=== PATIENT | male | born 1950 | race African-American/Black ===

== ENCOUNTER → 2024-03-14 15:08 | Outpatient (REF) | payer OTHER, SELFPAY | LOC: MRI 3T 15:08 | PROVIDERS: FAMILY PHYSICIAN Hospitalist | DX: C61 Malignant neoplasm of prostate (principal) | CPT/HCPCS: 72197; A9575 ==

== ENCOUNTER 2024-04-27 08:33 | Inpatient (IN) | payer OTHER, SELFPAY ==
[2024-04-26] VITALS (16 sets, daily range): BP systolic 118–164; BP diastolic 55–83; PULSE 61–76; BMI 31.7; BMI 31.6
[2024-04-26 08:24] LABS: Glucose - Point of Care 303 mg/dl (70-99)
[2024-04-26 08:28] LABS: % Basophils 0.8 % (0-2); % Eosinophils 3.9 % (0-6); % Immature Granulocytes 0.6 % (0-0.5); % Lymphocytes 38.5 % (20.5-51.1); % Monocytes 7.7 % (1.7-9.3); % Neutrophils 48.5 % (42.2-75.2); Absolute Basophils 0.1 10^3/uL (0-0.2); Absolute Eosinophils 0.3 10^3/uL (0-0.7); Absolute Lymphocytes 2.8 10^3/uL (1.2-3.4); Absolute Monocytes 0.6 10^3/uL (0.1-0.6); Absolute Neutrophils 3.5 10^3/uL (1.4-6.5); Hemoglobin 12.8 g/dL (13.0-18.0); Mean Corpuscular Hgb 26.2 pg (27.0-31.0); Mean Platelet Volume 11.5 fL (7.4-10.4); Nucleated Red Blood Cells % 0 % (-); Platelet Count 171 10^3/uL (130-400); Red Blood Cell Count 4.88 10^6/uL (4.70-6.10); White Blood Cell Count 7.3 10^3/uL (4.8-10.8)
[2024-04-26 08:57] LABS: Blood Urea Nitrogen 23 mg/dl (9-20); Calcium 9.3 mg/dl (8.4-10.2); Carbon Dioxide 23 mmol/L (22-30); Chloride 103 mmol/L (98-107); Estimated Creatinine Clearance 48 ml/min; Glucose 357 mg/dl (70-99); Sodium 133 mmol/L (135-145); eGFR 48.25
--- NOTE | 2024-04-26 09:36 | ED.GENMED ---
History of Present Illness
General
Chief Complaint: Fainting/Passed Out
Source: patient
Exam Limitations: none
Time Seen by Provider: 04/26/24 08:59
Nursing documentation reviewed up to this point in time: agreed with
History of Present Illness
History of Present Illness:
73-year-old male with history of insulin-dependent diabetes, hypertension, prostate cancer present emergency department today with concerns of witnessed transient change in mental status. Daughter reports that she was in the kitchen with her dad
today when patient was sitting at the kitchen table and suddenly, he sounded like he was gasping for air, his eyes rolled back in his head, and he started slurring his words. This episode lasted around 15 seconds. Daughter reports that she tried
checking his sugars and noted that it was around 314. She also tried to check his blood pressure with working. She subsequently called EMS. By the time the EMS arrived, patient seemed to fully come to it and just complained of fatigue. Patient
himself states that he not feel chest pain or dizziness prior to this episode, no palpitations, he states that he just was sitting in his daughter noted change in his speech. Patient denies shortness of breath. Patient states he currently has no
symptoms and feels well and at his baseline. 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 He apparently had similar episodes to this in the past and has had
workups for this before it is noted that his blood pressure was low at these instances.
Review of Systems
Review of Systems
All Other Systems: ROS reviewed and negative except as documented in HPI and ROS
Phy Exam
Physical Exam
Physical Exam:
General: Patient is well appearing and in no acute distress; non-toxic
Skin: Warm and dry, no rashes or lesions
Head: Normocephalic, atraumatic
Eyes: Sclera non-icteric. EOMs intact.
Cardiac: Regular rate and rhythm, no murmurs
Peripheral Vascular: No lower extremity swelling or edema, 2+ dorsalis pedis pulses bilaterally
Pulm: Normal respiratory effort, no wheezes, rales, rhonchi, breath sounds equal bilaterally
Musculoskeletal: 5 out of 5 strength in bilateral upper and lower extremities
Neuro: CN II-XII intact, no focal neurologic deficits. Finger-nose, [id number] testing intact.
Psychiatric: Appropriate mood and affect.
Course
Orders/Labs/Results
Orders:
Orders
04/26/24 08:13
EKG [Electrocardiogram (*1)] Urgent
Reason for Study: Syncope
EKG- Treatment ONCE
04/26/24 08:21
Basic Metabolic Panel Stat
CBC/With Diff [Complete Blood Count/With Diff] Stat
04/26/24 09:18
Orthostatic VS- Treatment ONCE
04/26/24 10:22
Add On- LAB Urgent
Tests Added?: troponin
CT Head W/o Iv Contrast Urgent
Comment:
Reason For Exam: transient dysarthria
04/26/24 10:32
D-Dimer Urgent
04/26/24 10:57
Troponin I Urgent
04/26/24 13:15
Admit/Transfer Patient As Directed
Co-Sign Provider:
Level of Care: Observation services
Assign to:: Telemetry
Physician / Group: Hospitalist
Diagnosis: Syncope
Reason for Telemetry: Syncope
Date to Stop Telemetry: 04/28/24
Time to Stop Telemetry: 11:00
Reason for Hospitalization: Syncope
PRN Pain Medication Management As Directed
May give lesser potent ordered pain med per pt: Yes
preference::
Protocol:: Medication orders for pain may be administered in a
manner that supports deferring to patient preference
when the pt is:
-Requesting an ordered lesser potent pain medication.
Least to most potent pain medications are defined as:
acetaminophen < NSAID < tramadol < opioids (morphine,
oxycodone, hydromorphone).
- Requesting a lesser dose of the same medication IF
ORDERED.
- Requesting a less intrusive route of administration
if both routes are prescribed by the provider (PO <
IV).
04/26/24 13:16
Code Status As Directed
Resuscitation Status: Full Code
04/26/24 Dinner
1800 calorie (15 carb) Diabetic
At Your Request: Full Participation
04/26/24 15:14
0.9% Sodium Chloride 1000 ml [Nss] 1,000 ml IV 75 mls/hr
Bisacodyl [Dulcolax] 10 mg RECTAL [id number] PRN
Dextrose 50%-Water [Dextrose 50% Syringe] 12.5 grams IV [id number] PRN
Docusate W/Senna [Senokot-S] 1 tablet PO BIDPRN PRN
Glucagon [GlucaGen] 1 mg IM PRN PRN
Polyethylene Glycol Powder [Miralax] 17 grams PO DAILYPRN PRN
04/26/24 15:14
Echo 2D MMode Color/Doppler Routine
Reason for Study: syncope
NEUROLOGY CONSULT Routine
Consulting Provider: Willy Burch
Was physician already notified: Yes
Reason for consult: LOC
Activity As Directed
Activity Level: Out of Bed-Early Mobility
Bedside Glucose Monitoring As Directed
Frequency: AC&HS
Additional Instructions:: Change to q6h if pt on TPN, tube feeding or not eating
Orthostatic Vital Signs As Directed
Orthostatic VS Frequency: Daily
Orthostatic Vital Signs As Directed
Orthostatic VS Frequency: Now
Vital Signs As Directed
Frequency: Per unit guidelines
DX Deep Vein Thrombosis Video Routine
04/26/24 15:37
Troponin I Q8H
04/26/24 16:00
Heparin 5,000 units SC Q8
04/26/24 16:30
Insulin Aspart Corrective Mod [Novolog Flexpen-Moderate Resistance] See Protocol SC AC
04/26/24 22:00
Atorvastatin [Lipitor] 40 mg PO HS
Insulin Aspart/Asp Protamine [Novolog Mix 70/30 Flexpen] 30 units SC HS
Tamsulosin [Flomax] 0.4 mg PO HS
04/26/24 23:14
Troponin I Q8H
04/27/24 06:00
Complete Blood Count/With Diff IN AM
Comprehensive Metabolic Panel IN AM
Glycohemoglobin (HgbA1c) IN AM
TSH Reflex To Free T4 IN AM
04/27/24 07:14
Troponin I Q8H
04/27/24 08:00
Finasteride [Proscar] 5 mg PO DAILY
Insulin Aspart/Asp Protamine [Novolog Mix 70/30 Flexpen] 65 units SC DAILY
Losartan [Cozaar] 25 mg PO DAILY
Metoprolol Xl [Toprol Xl] 25 mg PO DAILY
04/28/24 11:00
DC Protocol for Telemetry ONCE
Abnormal Lab Results
04/26/24 04/26/24 04/26/24
08:21 08:23 10:32
Hgb 12.8 L g/dL
(13.0-18.0)
MCH 26.2 L pg
(27.0-31.0)
MCHC 32.0 L g/dL
(33.0-37.0)
MPV 11.5 H fL
(7.4-10.4)
Immature Gran % 0.6 H %
(0-0.5)
D-Dimer 0.65 H ug/mlFEU
(0.00-0.50)
Sodium 133 L mmol/L
(135-145)
BUN 23 H mg/dl
(9-20)
Creatinine 1.5 H mg/dL
(0.7-1.3)
Glucose 357 H mg/dl
(70-99)
POC Glucose 303 H mg/dl
(70-99)
04/26/24 08:21
04/26/24 08:21
Vital Signs
Initial and Last Documented VS:
Initial Vital Signs
BP
135/76
04/26/24 08:10
Last Documented Vital Signs
Temp Pulse Resp BP Pulse Ox
97.7 F 61 17 152/83 99
04/26/24 15:33 04/26/24 15:33 04/26/24 15:33 04/26/24 15:33 04/26/24 15:33
MDM/Problems Addressed
Differential Diagnosis Includes:
ddx include arrhythmia, hypoglycemia, electrolyte derangement, ACS, orthostatic hypotension, PE
MDM/Problems Addressed:
Transient altered mental status:
73 y/o male with a PMH of HTN, prostate cancer, insulin dependent diabetes presenting to the ER today with a transient change in mental status witnessed by daughter. He was sitting at the kitchen table today when suddenly she heard him gasping for
breath, his eyes rolled in the back of his head, and he had a slurring of speech. This lasted around 30 seconds. He than stated he felt tired. Denies chest pain, shortness of breath, dizziness. Daughter subsequently called EMS and by the time they
got there, he was back to baseline and stated he felt well, but BP at the time was 73/40. Here in the emergency department, he is well-developed., Denies any symptoms currently, CBC unremarkable, CMP demonstrates hyperglycemia of 357 and mild
elevation BUN/creatinine, patient does apparently have chronic kidney disease and follows with architecture consultant, they note previous numbers to compare. Patient was given a bag of IV fluids. Age-adjusted D-dimer normal.
I spoke to Dr. Burch from neuro on the phone, he didn't think he needed a TIA workup. I suspect its likely a vasovagal response or medication response, he does take Tamsulosin and metoprolol but it seemed to be an unprovoked episode so we want to
keep him overnight for evaluation of possible arrhythmia. He has never been evaluated by a fish bait processing supervisor before. Patient referred for admission by hospitalist
Chronic conditions affecting care:
htn, diabetes
*Pulse Oximetry
Patient hypoxic: no
*Critical Care Note
Total Time (30-74mins, 75-104mins- exclusive of procedures): Not Applicable
Data Reviewed
Review of Other/Old Records Reveals: Records (No previous ER physician documentation to review) and Discharge Summary (No discharge summary in [facility] to review)
Source: patient and records
Patient Management
Escalation/DeEscalation of care consider admission/obs:
Reviewed case with Dr. Page, patient stable for discharge
Update Note
Update Note:
Patient's medications are as follows:
Finasteride 5 mg daily
Losartan 25 mg daily
Metoprolol 25 mg every other day
NovoLog in the morning 65 units
Tamsulosin 0.4 mg nightly
Atorvastatin 40 mg nightly
NovoLog 30 units nighty
ED Attending Note
-
Portions of this chart may have been created with voice recognition software.� Occasional wrong word or��sound alike� substitutions may have occurred due to the inherent limitations of voice recognition software.
Discharge Plan
Departure
Patient Disposition: Admit
Date of Disposition: 04/26/24
Time of Disposition: 12:15
Admit to: Telemetry
Presentation/result/management discussed w/ accepting MD/DO: Hospitalist
Patient with high blood pressure during this ER visit?: No
Condition: Fair
Discharge Problem:
Syncope
Interventions
Interventions:
*Risk Screen - Suicide Last Done: 04/26/24 15:13
*General Assessment Last Done: 04/26/24 15:13
*Neglect/Abuse Screening Last Done: 04/26/24 15:13
ED- Fall Risk Assessment Last Done: 04/26/24 08:27
*ED COVID-19 Vaccine History Last Done: 04/26/24 15:13
*Nursing Disposition Last Done: 04/26/24 15:13
ED- Cardiac Assessment Last Done: 04/26/24 08:27
ED- Neurological Assessment Last Done: 04/26/24 08:27
Discharge Date and Time
Discharge Date/Time: 04/26/24 15:14
[2024-04-26 11:22] LABS: D-Dimer 0.65 ug/mlFEU (0.00-0.50)
[2024-04-26 11:26] LABS: Troponin I < 0.012 ng/ml
--- NOTE | 2024-04-26 13:21 | HPS.HSE ---
Addendum entered and electronically signed by Da Abdi MD 04/26/24 14:44:
Wells 0, ddimer < age adjusted ULN, patient not hypoxic - no concern for VTE
Original Note:
Family Physician
-
Family Physician: Tyler Pelayo MD
Chief Complaint
-
syncope
History of Present Illness
73yo M with PMHx of back abscess s/p I&D and completed Abx, HTN, DM, HLD, BPH came after an episode of LOC lasted appr 30min associated with diaphoresis and without significant confusion afterwards. Had almost LOC episode couple of moth ago too. No
chest pain, recent infection and seen in ED with no complains. As per ED provider conversation with neurologist - no concern for acute stroke at the time of admission
No recent changes in meds
Medical History
Past Medical History
Past Medical History: Reports Other
Additional Past Medical History:
See HPI
Past Surgical History: Reports Other
Additional Past Surgical History:
See HPI
Social History
Tobacco: Non-smoker
Alcohol: None
Drug: None
Family History
Family History: Not pertinent
Allergies / Home Medications
Allergies reflects when Allergies were last updated in [facility].
Home Medications with original date entered in [facility]
Allergy/Medication List:
Home Medications
atorvastatin 40 mg tablet 40 mg PO HS 04/26/24
finasteride 5 mg tablet 5 mg PO DAILY 04/26/24
insulin aspar prt-insulin aspart 100 unit/mL (70-30) subcutaneous soln (Novolog Mix 70-30 U-100 Insuln) 30 unit SC HS 04/26/24
insulin aspar prt-insulin aspart 100 unit/mL (70-30) subcutaneous soln (Novolog Mix 70-30 U-100 Insuln) 65 unit SC DAILY 04/26/24
losartan 25 mg tablet 25 mg PO DAILY 04/26/24
metoprolol succinate 25 mg tablet,extended release 24 hr 25 mg PO DAILY 04/26/24
tamsulosin 0.4 mg capsule 0.4 mg PO HS 04/26/24
NKDA
Review of Systems
-
History Source: Patient and Family
A 12 point ROS was completed and negative except as noted: Yes
Physical Exam
Vital Signs
Vital Signs
Temp Pulse Resp BP Pulse Ox
97.5 F 57 21 158/78 98
04/26/24 08:14 04/26/24 12:00 04/26/24 12:00 04/26/24 12:00 04/26/24 12:00
Physical Exam
General: Well Developed, Well Nourished and No Apparent Distress
HEENT: NormoCephalic and Anicteric
Respiratory: Clear; No Wheezes or Rales
Cardiac: S1/S2 and Regular Rhythm
GI: Soft, Non Tender and Non Distended
Genito-urinary: No costovertebral tender
Musculoskeletal: No Clubbing, No Cyanosis and No Edema
Skin: Warm
Neuro: Awake, Alert, Oriented, AO x 3 and No Motor Deficits
Psych: Calm
Laboratory Results
-
04/26/24 08:21
04/26/24 08:21
Laboratory Results
Total Bilirubin Cancelled 04/26/24 08:21
AST Cancelled 04/26/24 08:21
ALT Cancelled 04/26/24 08:21
Alkaline Phosphatase Cancelled 04/26/24 08:21
Troponin I < 0.012 ng/ml 04/26/24 10:57
Data Reviewed
-
CT Scan: Report Reviewed by me
Lab Data: Labs Reviewed by me
Impression/Plan
-
73yo M with PMHx of back abscess s/p I&D and completed Abx, HTN, DM, HLD, BPH came after an episode of LOC lasted appr 30min associated with diaphoresis and without significant confusion afterwards. Had almost LOC episode couple of moth ago too. No
chest pain, recent infection and seen in ED with no complains. As per ED provider conversation with neurologist - no concern for acute stroke at the time of admission
No recent changes in meds
A/P:
#Syncope
Orthostatics
Echo, telemetry
Neurology consult
Serial troponin
TSH
CT head WNL
#DM type 2 with neuropathy
Cont insulin
check HgbA1c
DM diet, accuchecks, Insulin SS
#CKD vs OG
Cr on admission 1.5, unclear baseline
IVF and follow Cr
#Essential HTN
#BPH
#HLD
cont home meds
DVT ppx hep
FUll code
I have spent at least 76 min preparing admission, communication with family and direct patient care
[2024-04-26 16:20] LABS: Troponin I < 0.012 ng/ml
[2024-04-26 16:24] LABS: Glucose - Point of Care 151 mg/dl (70-99)
--- NOTE | 2024-04-26 17:00 | PTCARENOTE ---
Pt admitted to rm [id number] from ED. Ambulated to bed from stretcher. Family present at bedside. Pt AAOx3, can make needs known. Tele # [phone] in place - SB on monitor. Family reported patient had not voided since 6AM today - patient denied urge to urinate.
Pt instructed to attempt void, was able to void 400ml, bladder scanned for PVR 270ml. Hospitalist made aware, ordered serial bladder scan/straight cath. Family informed of POC.
[2024-04-26] MEDS: NOVOLOG FLEXPEN-MODERATE RESISTANCE 1 UNITS SC (17:56)
[2024-04-26] MEDS: HEPARIN 5000 UNITS SC (17:57)
[2024-04-26] MEDS: NSS 1000 IV (17:59)
[2024-04-26 21:46] LABS: Glucose - Point of Care 238 mg/dl (70-99)
[2024-04-26] MEDS: FLOMAX 0.4 MG PO (21:49)
[2024-04-26] MEDS: LIPITOR 40 MG PO (21:49)
[2024-04-26] MEDS: NOVOLOG MIX 70/30 FLEXPEN 30 UNITS SC (21:49)
[2024-04-26 23:39] LABS: Troponin I < 0.012 ng/ml
[2024-04-27] VITALS (7 sets, daily range): BP systolic 127–168; BP diastolic 66–83; PULSE 54–69
[2024-04-27] MEDS: HEPARIN SC (00:15)
[2024-04-27] MEDS: NSS 1000 IV ×2 (04:35→17:23)
[2024-04-27 05:11] LABS: Glucose - Point of Care 96 mg/dl (70-99)
--- NOTE | 2024-04-27 05:37 | PTCARENOTE ---
Patients own insulin monitor started alarming intermittently this morning for low blood sugar. Patient's monitor reading in the 60s on multiple occasions. Patient provided juice. After juice patient's own monitor alarming again for low sugars --
checked with hospital monitor showing 96. Patient is resting in bed comfortably, asymptomatic, able to sleep well throughout shift and has been back and forth to the bathroom. Call robert is within reach, will monitor.
[2024-04-27 07:34] LABS: Glucose - Point of Care 79 mg/dl (70-99)
[2024-04-27 07:56] LABS: % Basophils 0.5 % (0-2); % Eosinophils 3.8 % (0-6); % Immature Granulocytes 0.3 % (0-0.5); % Monocytes 8.5 % (1.7-9.3); % Neutrophils 43.9 % (42.2-75.2); Absolute Eosinophils 0.3 10^3/uL (0-0.7); Absolute Lymphocytes 3.2 10^3/uL (1.2-3.4); Absolute Monocytes 0.6 10^3/uL (0.1-0.6); Absolute Neutrophils 3.2 10^3/uL (1.4-6.5); Hematocrit 38.8 % (39.0-52.0); Hemoglobin 12.5 g/dL (13.0-18.0); Mean Corp Hgb Conc. 32.2 g/dL (33.0-37.0); Mean Corpuscular Volume 80.8 fL (80.0-94.0); Mean Platelet Volume 11.2 fL (7.4-10.4); Nucleated Red Blood Cells % 0 % (-); Platelet Count 172 10^3/uL (130-400); Red Cell Dist. Width 12.8 % (11.5-14.5); White Blood Cell Count 7.4 10^3/uL (4.8-10.8)
[2024-04-27 08:17] LABS: Troponin I < 0.012 ng/ml
--- NOTE | 2024-04-27 08:31 | W.PN.HOSP.TC ---
Today's Communication/Plan
-
Insulin decreased
BB stopped
Echo pending
follow trend
Assessment / Plan
Assessment / Plan
73yo M with PMHx of back abscess s/p I&D and completed Abx, HTN, DM, HLD, BPH came after an episode of LOC lasted appr 30min associated with diaphoresis and without significant confusion afterwards. Had almost LOC episode couple of month ago too.
Found bradycardic and with blood glucose in 60th on occasions on the on-skin monitor
A/P:
#Syncope
most likely 2/2 symptomatic bradycardia or hypoglycemia episodes
stop BB, decrease insulin - follow trend
Orthostatics negative
Echo, telemetry
Neurology consult would not be contributory with no focal neuro changes and no signs of seizures during the episodes
Serial troponin WNL
TSH
CT head WNL
Cardiology conult
#DM type 2 with neuropathy
Cont insulin - decrease dose, avoid hypoglycemia
check HgbA1c
DM diet, accuchecks, Insulin SS
#CKD vs OG
Cr on admission 1.5, unclear baseline
IVF and follow Cr
#Essential HTN
#BPH
#HLD
cont home meds
#Suspect ALICIA
advise outpatient sleep study
DVT ppx hep
Full code
I have spent at least 36min reviewing the chart, test results, comminication with consultats and direct patient care
Anticipated Discharge: Within 24 hours
Subjective/Interval History
-
Date of Service: April 27, 2024
Objective Data
-
Labs:
Laboratory Results
04/27/24
07:22
WBC 7.4
Hgb 12.5 L
Hct 38.8 L
Plt Count 172
Sodium Pending
Potassium Pending
Chloride Pending
Carbon Dioxide Pending
BUN Pending
Creatinine Pending
Glucose Pending
Calcium Pending
Total Bilirubin Pending
AST Pending
ALT Pending
Alkaline Phosphatase Pending
Vital Signs:
Vital Signs
Temp Pulse Resp BP Pulse Ox
98.6 F 59 17 127/66 97
04/27/24 07:29 04/27/24 07:29 04/27/24 07:29 04/27/24 07:29 04/27/24 07:29
I&O
04/26/24 04/27/24 04/28/24
06:59 06:59 06:59
Intake Total 1140 / 1140
Balance 1140 / 1140
Review of Systems
-
All other systems: Reviewed and negative
Physical Exam
-
General: Well Developed and Well Nourished
HEENT: Normocephalic
Respiratory: Clear to Auscultation
Cardiac: Regular Rhythm and Bradycardic
GI: Soft, Nontender and Nondistended
Genito-urinary: No Costovertebral Tender
Musculoskeletal: No Clubbing, No Cyanosis and No Edema
Neuro: Awake, Alert, Oriented and AO x 3
Psych: Calm
[2024-04-27 09:05] LABS: ALT (SGPT) 19 U/L (0-50); AST (SGOT) 22 U/L (17-59); Albumin 3.3 g/dl (3.5-5.0); Alkaline Phosphatase 73 U/L (38-126); Blood Urea Nitrogen 20 mg/dl (9-20); Calcium 9.3 mg/dl (8.4-10.2); Carbon Dioxide 24 mmol/L (22-30); Chloride 108 mmol/L (98-107); Estimated Creatinine Clearance 55 ml/min; Glucose 63 mg/dl (70-99); Potassium 4.1 mmol/L (3.5-5.1); Sodium 137 mmol/L (135-145); Total Bilirubin 0.4 mg/dl (0.2-1.3); Total Protein 6.1 g/dl (6.3-8.2); eGFR 57.29
[2024-04-27] MEDS: NOVOLOG FLEXPEN-MODERATE RESISTANCE SC ×2 (09:05→16:53)
[2024-04-27] MEDS: NOVOLOG MIX 70/30 FLEXPEN 55 UNITS SC (09:06)
[2024-04-27] MEDS: HEPARIN 5000 UNITS SC ×3 (09:07→23:06)
[2024-04-27] MEDS: PROSCAR 5 MG PO (09:08)
[2024-04-27] MEDS: COZAAR 25 MG PO (09:08)
[2024-04-27 09:38] LABS: Glycohemoglobin (HgbA1c) 13.1 % (4.0-5.6)
[2024-04-27 09:42] LABS: TSH Reflex To Free T4 1.84 uIU/ml (0.47-4.68)
[2024-04-27 11:35] LABS: Glucose - Point of Care 193 mg/dl (70-99)
[2024-04-27] MEDS: NOVOLOG FLEXPEN-MODERATE RESISTANCE 1 UNITS SC (12:38)
[2024-04-27 16:19] LABS: Glucose - Point of Care 136 mg/dl (70-99)
--- NOTE | 2024-04-27 17:05 | CON.CAR ---
Consultation
Consultation Request
Date/Time Consultation Requested: 04/27/2024 1100
Date/Time Consultation Performed: 04/27/2024 1600
Requesting Provider: Hospitalist
Performing Provider: Dr. Fitzpatrick
Reason for Consultation: Syncope
Medical History
-
History of Present Illness:
.
73-year-old male with a history of diabetes hypertension and hypercholesterolemia who presents with an episode of syncope. Patient was in his usual state of health and was sitting in cooking with his daughter. She turned around briefly and when
she turned back his head was extended backward and she said he was breathing funny she went over and she will come and then he briefly woke up with appeared tired and wanted to go up and was going to fall back to sleep also appeared to be briefly
slurring his words. No complaints of chest pain or shortness of breath. Patient does not recall feeling lightheaded or dizzy. No prodrome. He has had 2 episodes of syncope in the past both occurred at his doctor's office none of them were
preceded by phlebotomy or vaccination or other procedures. Difficulty describing the details and sounded like the most recent episode in July 2023 occurred after he was finished with the visit and he got up to leave. No recent changes in
medications.
In general his family says he has been a bit more tired and wants to rest but has not had exertional symptoms including no exertional chest pain or shortness of breath no complaints of lightheadedness dizziness palpitations or heart racing
Past medical history
Hypertension
diabetes
Hypercholesterolemia
Previous back abscess and I&D
Social history multiple children at bedside distant history of smoking
Family history negative for CAD
Past Medical History
Past Medical History: Other (As noted)
Social History
Tobacco: Former Smoker
Family History
Family History: Reviewed & Not Pertinent
Allergies / Home Medications
Allergy/AdvReac Type Severity Reaction Status Date / Time
No Known Allergies Allergy Unverified 04/26/24 15:42
�Medication �Instructions �Recorded �Confirmed �Type
atorvastatin 40 mg tablet 40 mg PO HS High Cholesterol 04/26/24 04/26/24 History
finasteride 5 mg tablet 5 mg PO DAILY Urinary Issue 04/26/24 04/26/24 History
insulin aspar prt-insulin aspart 30 unit SC HS Diabetes 04/26/24 04/26/24 History
100 unit/mL (70-30) subcutaneous
soln (Novolog Mix 70-30 U-100
Insuln)
insulin aspar prt-insulin aspart 65 unit SC DAILY Diabetes 04/26/24 04/26/24 History
100 unit/mL (70-30) subcutaneous
soln (Novolog Mix 70-30 U-100
Insuln)
losartan 25 mg tablet 25 mg PO DAILY Blood Pressure 04/26/24 04/26/24 History
metoprolol succinate 25 mg 25 mg PO DAILY Blood Pressure 04/26/24 04/26/24 History
tablet,extended release 24 hr
tamsulosin 0.4 mg capsule 0.4 mg PO HS Urinary Issue 04/26/24 04/26/24 History
Review of Systems
-
All other systems: Negative unless noted ( )
Respiratory: Other (Wheezing)
Physical Exam
Vital Signs
Temp Pulse Resp BP Pulse Ox
97.9 F 65 18 140/67 96
04/27/24 15:21 04/27/24 15:21 04/27/24 15:21 04/27/24 15:21 04/27/24 15:21
Lab Results
04/27/24 07:22
04/27/24 07:22
Troponin I < 0.012 ng/ml 04/27/24 07:22
Physical Exam
General: Other (Awake alert cooperative no distress)
HEENT: Normocephalic, Anicteric and Other (Pupils are equal extract movements intact external ear and oral exam unremarkable neck with adenopathy no JVD no carotid bruit)
Respiratory: Wheezes (End expiratory wheeze bilaterally no rales or rhonchi)
Cardiac: Regular Rhythm (No murmur rub or gallop)
GI: Soft, Non Tender and Non Distended
Musculoskeletal: Clubbing, No Clubbing and No Cyanosis
Impression / Plan
-
.
LOC. Suspected syncope. Patient and family do not think that he just fell asleep in the chair. Exact etiology unclear. Patient's had 2 other episodes of syncope which occurred at his physician's office because of those episodes also unclear.
Last episode July 2023.
-Telemetry
-Echo
-If the above tests are unremarkable then would recommend a longer-term cardiac monitoring with at least 2-week monitor. Implantable loop could also be a consideration in this patient who reports more than 1 syncopal episode
.
DM, poorly controlled. Hemoglobin A1c 13 management directed by primary team
Hypertension stable
Hypercholesterolemia. Continue atorvastatin
Data Reviewed
-
EKG: Report Reviewed by me
Medical Tests (Nuc Med, Echo etc): Report Reviewed by me
Labs: Labs Reviewed by me
[2024-04-27 21:19] LABS: Glucose - Point of Care 222 mg/dl (70-99)
[2024-04-27] MEDS: LIPITOR 40 MG PO (21:21)
[2024-04-27] MEDS: FLOMAX 0.4 MG PO (21:21)
[2024-04-27] MEDS: NOVOLOG MIX 70/30 FLEXPEN 25 UNITS SC (21:21)
[2024-04-28] VITALS (8 sets, daily range): BP systolic 141–160; BP diastolic 70–91; PULSE 61–79; O2SAT 98
[2024-04-28 03:04] LABS: Glucose - Point of Care 61 mg/dl (70-99)
[2024-04-28 03:19] LABS: Glucose - Point of Care 72 mg/dl (70-99)
--- NOTE | 2024-04-28 03:23 | PTCARENOTE ---
Pt. blood glucose alarming at 55. Fingerstick accuchek performed by RN and resulted at 61. 4 oz juice given to patient. Patient asymptomatic. 15 mins later, fingerstick accuchek resulted at 72. Patient remains asymptomatic. Plan of care ongoing.
[2024-04-28 05:22] LABS: Glucose - Point of Care 107 mg/dl (70-99)
[2024-04-28] MEDS: NSS 1000 IV (06:25)
[2024-04-28 07:16] LABS: Glucose - Point of Care 126 mg/dl (70-99)
--- NOTE | 2024-04-28 08:27 | PN.DE.MGMTRT ---
Insulin Management
- -
04/28/2024: Diabetes Management Consult
73 year old male admitted with a recurrent syncope episode. PMH: HTN, HLD, BPH, back abscess s/p I&D and T2DM. It is noted that his episode of LOC lasted appr 30min associated with diaphoresis and without significant confusion afterwards. He was
found bradycardic and Hypoglycemic with a blood sugar in 60s on his CGM. He was taking 70/30 BID, 65 units in AM and 30 units in PM prior to admission. A1C 13.1%, Cr 1.5, eGFR 57.29
Pt awake, A/O x3, offers no complaints, able to discuss diabetes mgt.
Has no Endo, Lives in [facility] and diabetes managed by his PCP. States he has a CGM-Cara
He has been started on his OP regimen at reduced dose of 55 units in AM and 25 units @HS
Of note, pt has had 2 episodes of Hypoglycemia as low as 63, fasting on 04/27 and again down to 61 @3AM on 04/28.
Will change schedule to dinner time and reduced dose to 22 units. Cont AM 70/30 dose of 55 units. Cont moderate corrective with meals
Will cont to follow and adjust insulin dose if necessary
Diabetes History
- -
Type of Diabetes: 2 requiring insulin
Pre-Admission Diabetes Regimen
04/27/24
07:22
Creatinine 1.3
Lab Results
Hemoglobin A1c 13.1 % (4.0-5.6) H 04/27/24 07:22
Insulin Pump Settings
IP Diabetes Regimen
04/27/24 04/27/24 04/27/24
07:22 11:32 16:18
Glucose 63 L
POC Glucose 193 H 136 H
04/27/24 04/28/24 04/28/24
21:18 03:02 03:17
Glucose
POC Glucose 222 H 61 L 72
07/29/24 07/29/24
05:21 07:15
Glucose
POC Glucose 107 H 126 H
Meal type: Lunch
Meal type: Breakfast
Amount consumed: 100%
Amount consumed: 100%
Patient Education
[2024-04-28] MEDS: COZAAR 25 MG PO ×2 (08:40→15:46)
[2024-04-28] MEDS: NOVOLOG FLEXPEN-MODERATE RESISTANCE SC ×2 (08:40→17:29)
[2024-04-28] MEDS: PROSCAR 5 MG PO (08:40)
[2024-04-28] MEDS: HEPARIN 5000 UNITS SC ×2 (08:41→17:31)
[2024-04-28] MEDS: NOVOLOG MIX 70/30 FLEXPEN 55 UNITS SC (08:41)
[2024-04-28 11:31] LABS: Glucose - Point of Care 201 mg/dl (70-99)
[2024-04-28] MEDS: NOVOLOG FLEXPEN-MODERATE RESISTANCE 3 UNITS SC (12:13)
--- NOTE | 2024-04-28 12:48 | W.PN.CD ---
Today's Communication / Plan
-
- Plan 30 day monitor if workup here is all negative
Impression / Plan
-
-
Syncope
- Uncertain etiology
- Prior syncope most c/w vasovagal/situational
- Mildly abnl ekg, Not sure IMI criteria are met
- Tele negative so far
- CT head negative
- Trop negative x4
- Echo pending
- Plan 30 day monitor if workup here is all negative
DM, poorly controlled. Hemoglobin A1c 13 management directed by primary team
Hypertension stable
Hypercholesterolemia. Continue atorvastatin
Prostate cancer
BPH
Subjective:
No CP o dyspnea
Physical Exam
Vital Signs/Labs
Vital Signs
Temp Pulse Resp BP Pulse Ox
97.8 F 66 17 160/75 99
04/28/24 10:50 04/28/24 10:50 04/28/24 10:50 04/28/24 10:50 04/28/24 10:50
04/27/24 04/28/24 04/29/24
06:59 06:59 06:59
Actual Weight 94.211 kg
04/27/24 07:22
04/27/24 07:22
LAB Results
04/26/24 04/26/24 04/26/24
10:57 15:37 23:08
Troponin I < 0.012 < 0.012 < 0.012
04/27/24
07:22
Troponin I < 0.012
Physical Exam
Constitutional: No acute distress
EENT: Anicteric
Cardiovascular: Rhythm & rate is regular and Pedal edema is absent
Respiratory: Respiratory effort normal and Lungs clear to auscul.
GI: Soft and Distention absent
Neuro/Psych: AO x 3
Data Reviewed
-
Date of Service: April 28, 2024
--- NOTE | 2024-04-28 13:16 | W.PN.HOSP.TC ---
Today's Communication/Plan
-
see outlined plan
Assessment / Plan
Assessment / Plan
Assessment:
Syncope
- arrhythmia vs hypoglycemia related
- Orthostatics negative
- monitor tele; so far no events
- await Echo
- OP cardiology f/u and arrange 30 day monitor
Labile type 2 DM with neuropathy
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
- A1C: 13.1%
CKD stage 3b
Essential HTN
- continue ARB
- stop BB
BPH - continue proscar
HLD - continue statin
ALICIA suspected
- OP sleep eval
DVT ppx: SC heparin
Code: Full
Anticipated Discharge: 24 - 48 hours
Subjective/Interval History
-
Date of Service: April 28, 2024
denies any new complaints today
tele unremarkable
Objective Data
-
Vital Signs:
Vital Signs
Temp Pulse Resp BP Pulse Ox
97.8 F 66 17 160/75 99
04/28/24 10:50 04/28/24 10:50 04/28/24 10:50 04/28/24 10:50 04/28/24 10:50
I&O
04/27/24 04/28/24 04/29/24
06:59 06:59 06:59
Intake Total 1140 / 1140 1260 / 1260
Balance 1140 / 1140 1260 / 1260
Physical Exam
-
General: No Apparent Distress
HEENT: Normocephalic and Atraumatic
Respiratory: Negative Wheezes
Cardiac: Regular Rhythm and S1/S2
GI: Soft
Genito-urinary: No Costovertebral Tender
Musculoskeletal: No Edema
Neuro: AO x 3
Hematologic / Lymphatic: No Lymphadenopathy
Psych: Calm
Data Reviewed
-
Total Time Spent with Patient (in minutes): 42
Labs: Labs Reviewed by me
--- NOTE | 2024-04-28 13:56 | CM ---
Patient seen at bedside with daughter also present. Patient daughter translated for patient. Patient lives with daughter on the first floor. Patient stated that he has a PCP Dr. natarajan and he uses the [facility] on [address] in [facility]. Patient uses a
cane at home but does not have any other DME. Patient states that he is eager to go home. CM will continue to follow for discharge planning needs.
Plan; home with no needs anticipated.
[2024-04-28 16:34] LABS: Glucose - Point of Care 123 mg/dl (70-99)
[2024-04-28] MEDS: NOVOLOG MIX 70/30 FLEXPEN 22 UNITS SC (17:31)
[2024-04-28 20:57] LABS: Hepatitis C Antibody Negative (Negative)
[2024-04-28] MEDS: FLOMAX 0.4 MG PO (21:15)
[2024-04-28] MEDS: LIPITOR 40 MG PO (21:15)
[2024-04-28 21:47] LABS: Glucose - Point of Care 67 mg/dl (70-99)
[2024-04-28 22:02] LABS: Glucose - Point of Care 64 mg/dl (70-99)
[2024-04-28 22:18] LABS: Glucose - Point of Care 71 mg/dl (70-99)
[2024-04-28 23:59] LABS: Glucose - Point of Care 116 mg/dl (70-99)
[2024-04-29] MEDS: HEPARIN SC (00:20)
[2024-04-29 02:16] LABS: Glucose - Point of Care 50 mg/dl (70-99)
[2024-04-29 02:31] LABS: Glucose - Point of Care 56 mg/dl (70-99)
[2024-04-29] MEDS: DEXTROSE 50% SYRINGE 12.5 GRAMS IV (02:33)
[2024-04-29 02:52] LABS: Glucose - Point of Care 154 mg/dl (70-99)
[2024-04-29 03:00] VITALS: BP 130/68
[2024-04-29 05:04] LABS: Glucose - Point of Care 120 mg/dl (70-99)
[2024-04-29 06:09] LABS: Hematocrit 40.2 % (39.0-52.0); Hemoglobin 13.1 g/dL (13.0-18.0); Mean Corp Hgb Conc. 32.6 g/dL (33.0-37.0); Mean Corpuscular Hgb 25.7 pg (27.0-31.0); Mean Corpuscular Volume 78.8 fL (80.0-94.0); Mean Platelet Volume 10.4 fL (7.4-10.4); Platelet Count 160 10^3/uL (130-400); Red Cell Dist. Width 13.2 % (11.5-14.5); White Blood Cell Count 6.9 10^3/uL (4.8-10.8)
[2024-04-29 06:29] LABS: Blood Urea Nitrogen 16 mg/dl (9-20); Calcium 9.6 mg/dl (8.4-10.2); Carbon Dioxide 25 mmol/L (22-30); Chloride 106 mmol/L (98-107); Estimated Creatinine Clearance 55 ml/min; Glucose 134 mg/dl (70-99); Potassium 4.5 mmol/L (3.5-5.1); Sodium 136 mmol/L (135-145); eGFR 57.29
[2024-04-29 07:15] VITALS: BP 136/74
[2024-04-29 07:34] LABS: Glucose - Point of Care 136 mg/dl (70-99)
--- NOTE | 2024-04-29 08:00 | PN.DE.MGMTRT ---
Insulin Management
- -
04/29/2024: Diabetes Management Consult Follow up
Patient with a transient syncope episode which resolved once EMs arrived. PMH: HTN, HLD, BPH, back abscess s/p I&D and T2DM. It is noted that his episode of LOC lasted appr 30min associated with diaphoresis and without significant confusion
afterwards. He was found bradycardic and Hypoglycemic with a blood sugar in 60s on his CGM. He was taking 70/30 BID, 65 units in AM and 30 units in PM prior to admission. A1C 13.1%, Cr 1.5, eGFR 57.29
Pt awake, A/O x3, offers no complaints, able to discuss diabetes mgt.
Has no Endo, Lives in [facility] and diabetes managed by his PCP. States he has a CGM-Cara
He has been started on his OP regimen at reduced dose of 55 units in AM and 25 units @HS
Patient has had several episodes of Hypoglycemia as low as 63, fasting on 04/27 and again down to 61 @3AM on 04/28 and 04/29 glucose 50 @ 2:15am and 56 @ 2:30am.
Will further reduce 70/30 dinner dinner dose to 15 units. Cont AM 70/30 dose of 55 units. Will reduce moderate corrective to low corrective with meals
Will cont to follow and adjust insulin dose if necessary
Diabetes History
- -
Type of Diabetes: 2 requiring insulin
Pre-Admission Diabetes Regimen
04/29/24
05:18
Creatinine 1.3
Lab Results
Hemoglobin A1c 13.1 % (4.0-5.6) H 04/27/24 07:22
Insulin Pump Settings
IP Diabetes Regimen
04/28/24 04/28/24 04/28/24
11:30 16:33 21:46
Glucose
POC Glucose 201 H 123 H 67 L
04/28/24 04/28/24 04/28/24
22:01 22:16 23:58
Glucose
POC Glucose 64 L 71 116 H
04/29/24 04/29/24 04/29/24
02:15 02:30 02:51
Glucose
POC Glucose 50 L* 56 L 154 H
04/29/24 04/29/24 04/29/24
05:02 05:18 07:33
Glucose 134 H
POC Glucose 120 H 136 H
Meal type: Lunch
Meal type: Breakfast
Amount consumed: 100%
Amount consumed: 100%
Patient Education
[2024-04-29] MEDS: HEPARIN 5000 UNITS SC (08:18)
[2024-04-29] MEDS: COZAAR 50 MG PO (08:18)
[2024-04-29] MEDS: PROSCAR 5 MG PO (08:18)
[2024-04-29] MEDS: NOVOLOG MIX 70/30 FLEXPEN 55 UNITS SC (08:20)
[2024-04-29] MEDS: NOVOLOG FLEXPEN-MODERATE RESISTANCE SC (08:24)
--- NOTE | 2024-04-29 10:32 | CM ---
Patient did well with physial therapy and plan is to home with visiting nurses. Patient to stay at daughter's home [address] [facility] [place] [id number]. Daughter to transport patient to home around 2:30pm.
Plan; Home with VN.
--- NOTE | 2024-04-29 11:21 | W.PN.HOSP.TC ---
Today's Communication/Plan
-
dc to home/VN today
Assessment / Plan
Assessment / Plan
Assessment:
Syncope
- arrhythmia vs hypoglycemia related
- Orthostatics negative
- monitor tele; so far no events
- Echo: no valve or wall motion abnormalities. normal EF
- OP cardiology f/u and arrange 30 day monitor
Labile type 2 DM with neuropathy
- continue insulin; [employer] consulted for adjustments given low readings
- A1C: 13.1%
CKD stage 3b
Essential HTN
- continue ARB
- stop BB
BPH - continue Proscar
HLD - continue statin
ALICIA suspected
- OP sleep evaluation
DVT ppx: SC heparin
Code: Full
More than 30 minutes spent in discharge including
Final examination of the patient
Summarizing hospital stay
Instructions for continuing care to all relevant caregivers
Preparation of discharge records, prescriptions, and referral forms
Total time spent (in minutes):42
Anticipated Discharge: Today
Subjective/Interval History
-
Date of Service: April 29, 2024
no new complaints
sugars more stable
Objective Data
-
Labs:
Laboratory Results
04/29/24
05:18
WBC 6.9
Hgb 13.1
Hct 40.2
Plt Count 160
Sodium 136
Potassium 4.5
Chloride 106
Carbon Dioxide 25
BUN 16
Creatinine 1.3
Glucose 134 H
Calcium 9.6
Vital Signs:
Vital Signs
Temp Pulse Resp BP Pulse Ox
97.5 F 60 17 136/74 98
04/29/24 07:15 04/29/24 08:18 04/29/24 07:15 04/29/24 08:18 04/29/24 09:43
I&O
04/28/24 04/29/24 04/30/24
06:59 06:59 06:59
Intake Total 1260 / 1260 1500 / 1500
Balance 1260 / 1260 1500 / 1500
Physical Exam
-
General: No Apparent Distress
HEENT: Normocephalic and Atraumatic
Respiratory: Negative Wheezes
Cardiac: Regular Rhythm and S1/S2
GI: Soft and Nontender
Musculoskeletal: No Edema
Neuro: AO x 3
Hematologic / Lymphatic: No Lymphadenopathy
Psych: Calm
Data Reviewed
-
Total Time Spent with Patient (in minutes): 45
Labs: Labs Reviewed by me
--- NOTE | 2024-04-29 11:28 | W.DS.TRANS ---
DC Summary - Court Interpreter
-
Discharge Instructions:
Discharge Diagnosis/Procedures syncope, labile diabetes
Diet Diabetic, Carb Controlled
Activity As tolerated
Other Services VN
Instructions:
Stand-Alone Forms:
Changes to Home Medications: No
Discharge Medications:
DC Medications w/original date entered in [employer]
atorvastatin 40 mg tablet 40 mg PO HS High Cholesterol 04/26/24
finasteride 5 mg tablet 5 mg PO DAILY Urinary Issue 04/26/24
tamsulosin 0.4 mg capsule 0.4 mg PO HS Urinary Issue 04/26/24
insulin aspar prt-insulin aspart 100 unit/mL (70-30) subcutaneous soln (Novolog Mix 70-30 U-100 Insuln) 15 unit (0.15 mL) SC DAILY@1700 Diabetes #0 mL 04/29/24
insulin aspar prt-insulin aspart 100 unit/mL (70-30) subcutaneous soln (Novolog Mix 70-30 U-100 Insuln) 55 unit (0.55 mL) SC DAILY Diabetes #0 mL 04/29/24
losartan 50 mg tablet 50 mg PO DAILY #30 tabs 04/29/24
Home Medication Changes
Pending Results: No
Total time spent discharging patient (in min): 42
--- NOTE | 2024-04-29 11:38 | VNURNOTE ---
Home Health Liaison met with patient at the bedside to discuss [facility] nurse/therapy, visits, schedule and homebound status. Patient is agreeable and understands that visits at home will be 1-3 x per week to assess and teach medical management. This
author also called patient's daughter Liliana and explained services. She confirmed the address in [place] where the patient will be staying at. Provided liaison's cell number if any questions. Patient iand daughter are aware that [facility] will
contact them for start of care in 1-2 days after discharge from . [facility] referral completed in [facility].
--- NOTE | 2024-04-29 11:42 | W.PN.CD ---
Today's Communication / Plan
-
-
Cardiology will sign off
F/u arranged.
-
Impression / Plan
-
-
Syncope
- Uncertain etiology
- Prior syncope most c/w vasovagal/situational
- Mildly abnl ekg, Not sure IMI criteria are met
- Tele negative so far
- CT head negative
- Trop negative x4
- Echo unremarkable
- Plan 30 day monitor if workup here is all negative => has been arranged
DM, poorly controlled. Hemoglobin A1c 13 management directed by primary team
Hypertension stable
Hypercholesterolemia. Continue atorvastatin
Prostate cancer
BPH
Subjective:
No CP or dyspnea
Physical Exam
Vital Signs/Labs
Vital Signs
Temp Pulse Resp BP Pulse Ox
97.5 F 60 17 136/74 98
04/29/24 07:15 04/29/24 08:18 04/29/24 07:15 04/29/24 08:18 04/29/24 09:43
04/29/24 05:18
04/29/24 05:18
LAB Results
04/26/24 04/26/24 04/27/24
15:37 23:08 07:22
Troponin I < 0.012 < 0.012 < 0.012
Physical Exam
Constitutional: No acute distress
EENT: Anicteric
Cardiovascular: Rhythm & rate is regular and Pedal edema is absent
Respiratory: Respiratory effort normal and Lungs clear to auscul.
GI: Soft and Distention absent
Neuro/Psych: AO x 3
Data Reviewed
-
Date of Service: April 29, 2024
[2024-04-29 11:54] LABS: Glucose - Point of Care 131 mg/dl (70-99)
[2024-04-29 14:57] VITALS: BP 149/75
== END 2024-04-29 15:03 | disposition home health service (06) | DRG 312 ==
LOC: 3 WEST ACU 08:33
PROVIDERS: Physician Assistant; ADMITTING PHYSICIAN Internal Medicine; ATTENDING PHYSICIAN Internal Medicine; CONSULT PHYSICIAN Internal Medicine Cardiovascular Disease; EMERGENCY PHYSICIAN Emergency Medicine; FAMILY PHYSICIAN Hospitalist
DX: R55 Syncope and collapse (principal); E11.40 Type 2 diabetes mellitus with diabetic neuropathy, unspecified; E11.22 Type 2 diabetes mellitus with diabetic chronic kidney disease; I12.9 Hypertensive chronic kidney disease with stage 1 through stage 4 chronic kidney disease, or unspecified chronic kidney disease; N18.32 Chronic kidney disease, stage 3b; N40.0 Benign prostatic hyperplasia without lower urinary tract symptoms; E78.00 Pure hypercholesterolemia, unspecified; G47.33 Obstructive sleep apnea (adult) (pediatric); R53.83 Other fatigue; Z79.4 Long term (current) use of insulin; Z79.899 Other long term (current) drug therapy; Z85.46 Personal history of malignant neoplasm of prostate; Z87.891 Personal history of nicotine dependence
CPT/HCPCS: 70450; 80048; 80053; 82962; 83036; 84443; 84484; 85025; 85027; 85379; 86803; 87070; 93005; 93306; 97162; 97166; 99285